=== PATIENT | male | born 1955 | race Caucasian/White ===

== ENCOUNTER → 2019-03-11 | Outpatient (CLI) | payer OTHER, SELFPAY ==
--- NOTE | 2019-03-11 16:35 | RAD_ITS ---
STUDY: X-RAY - PELVIS AND LEFT HIP REASON FOR EXAM: Male, 64 years old. Iliopsoas strain TECHNIQUE: 3 views of the pelvis and hip. COMPARISON: None. FINDINGS: There is a non-specific bowel gas pattern. Normal visualized soft tissue structures. Degenerative lower lumbar changes. Normal bilateral iliac wings, sacroiliac joints and visualized sacrum. Normal bilateral superior and inferior pubic rami. Normal pubic symphysis. Normal bilateral ischial tuberosities. Normal visualized femoral head. Normal acetabulum. Normal hip joint. RAD/HIP, UNI W/ Pelvis 2-3 Views IMPRESSION: Normal x-ray examination of the pelvis and hip. Electronically Signed: Yang Campbell DO at 21:48 EDT Tel [phone], Service support ,
== END | disposition home or self-care (01) ==
LOC: MTRAD 16:33
PROVIDERS: Family Provider Family Medicine; PCP Family Medicine; Referring Provider Family Medicine; Visit Provider Family Medicine
DX: S76 Injury of muscle, fascia and tendon at hip and thigh level (principal)
CPT/HCPCS: 73502

== ENCOUNTER → 2020-03-27 15:28 | Outpatient (CLI) | payer MEDICARE, SELFPAY ==
[2020-03-27 18:02] LABS: Anion Gap 5 (5-15); BUN 20 mg/dL (7-18); BUN/Creat Ratio 23.4 RATIO (10-20); Calcium,Total 9.1 mg/dL (8.5-10.1); Chloride 101 mmol/L (98-107); Cholesterol 203 mg/dL (200); Creatinine, Serum 0.86 mg/dL (0.70-1.30); EST Glomerular Filtration Rate 96 mL/min (>60); Est Glom Filt Rate - Afr Amer 116 mL/min (>60); Glucose 115 mg/dL (74-106); High Density Lipoprotein 71 mg/dL; PSA,Total - Annual Screen 4.21 ng/mL (0.00-4.00); Potassium 3.8 mmol/L (3.5-5.1); Sodium Level 137 mmol/L (136-145); Triglycerides 34 mg/dL; Very Low Density Lipoprotein 7 mg/dL (5-40)
== END ==
PROVIDERS: PCP Family Medicine; Referring Provider Family Medicine; Visit Provider Family Medicine
DX: Z00.00 Encounter for general adult medical examination without abnormal findings (principal)
CPT/HCPCS: 36415; 80048; 80061; 84153; G0103

== ENCOUNTER → 2020-04-14 12:10 | Outpatient (CLI) | payer MEDICARE, SELFPAY ==
[2020-04-14 12:38] LABS: Bacteria 0 SEEN /hpf (None Seen); Mucous, Urine 0 SEEN /hpf (<or=2+); White Blood Cells 0 SEEN /hpf (0-5)
[2020-04-14 12:57] LABS: Color, Urine Yellow (Yellow); Glucose, Dipstick Normal (Normal); Ketone-Dipstick Negative (Negative); Leukocyte Esterase-Dipstick Negative /ul (Negative); Nitrite-Dipstick Negative (Negative); Occult Blood-Urine Negative /ul (Negative); Protein-Dipstick 15 mg/dl (Negative); Urine Bilirubin Dipstick Negative (Negative); Urine Clarity Sl. Cloudy (Clear); Urine Urobilinogen Normal (Normal)
[2020-04-14 13:21] LABS: Red Blood Cells-Urine 0-5 SEEN /hpf (0-5); Squamous Epithelial Cells - UA 0-5 SEEN /hpf (0-5)
== END ==
PROVIDERS: PCP Family Medicine; Visit Provider Nurse Practitioner Adult Health
DX: R31.9 Hematuria, unspecified (principal)
CPT/HCPCS: 81001

== ENCOUNTER → 2020-05-26 10:45 | Outpatient (CLI) | payer MEDICARE, SELFPAY ==
--- NOTE | 2020-05-26 | IMM_PTH ---
PATIENT: GALLO OG LOC: [facility] U#:[id number] AGE/SX: 70/M ROOM: RE05/26/[address]: Dr. Tong Velázquez MD : 1955 BED: DIS: SPEC #: [id number] RECD: 05/28/20 10:26 STATUS: ZULMA REQ #: [id number] WOODY: 05/26/20 00:[address]: Tong Velázquez DEPT: IMMUNOHISTOCHEMISTRY RECD BY: Jessica Segundo ENTERED: 05/28/20 10:28 SP TYPE: IMMUNO OTHR DR: Dr. Janay Roche MD Tissues: B - PROSTATE RIGHT Procedures: P40 (add) 34BE12 (initial) PHYSICIAN & INSTITUTION [place] [address] SPECIMEN INFORMATION: Tissue Source: B - Right prostate, mid, core biopsy Clinical Info: Elevated PSA Specimen Number: [id number] CPT code: 25179, 15120 METHODOLOGY: Deparaffinized sections of prefer/formalin-fixed tissue or PAP/DQ stained slides are incubated with monoclonal/polyclonal antibodies/oligonucleotide probes. Localization is made via biotin free immunoperoxidase method. Appropriate controls are performed and reacted as expected. Results on target cell population are indicated in the following table: RESULTS: ANTIBODY / CLONE RESULT Block B 34BE12 (34BE12) negative P40 (BC28) negative These tests were developed and their performance characteristics determined by [facility]. They may not have been cleared or approved by the [place]. Food and Drug Administration. The FDA has determined that such clearance or approval is not necessary. The above immunohistochemical/dualISH markers are ordered and reviewed by the Pathologist. INTERPRETATION: B. Right prostate, mid, core biopsy: Focal atypical small acinar proliferation. SJ:james 05/29/2020 Case has been reviewed in consultation with Dr. Marshall who concurs with the above diagnosis. IDC:AM
--- NOTE | 2020-05-26 | PROSBIL_PTH ---
PATIENT: GALLO OG LOC: [facility] U#:[id number] AGE/SX: 70/M ROOM: RE05/26/[address]: Dr. Tong Velázquez MD : 1955 BED: DIS: SPEC #: [id number] RECD: 05/26/20 11:23 STATUS: ZULMA RACHEL #: [id number] WOODY: 05/26/20 00:[address]: Tong Velázquez DEPT: SURGICAL PATHOLOGY RECD BY: Omari Abad ENTERED: 05/26/20 11:23 SP TYPE: PROST BX JOSE CARLOS DR: Dr. Janay Roche MD Tissues: A - PROSTATE RIGHT B - PROSTATE RIGHT C - PROSTATE RIGHT D - PROSTATE LEFT E - PROSTATE LEFT F - PROSTATE LEFT Procedures: PROSTATE BX HEADER OPERATION: TRUS/biopsy PRE-OP DIAGNOSIS: Elevated PSA TISSUE SUBMITTED: A - Right apex, B - Right mid, C - Right base, D - Left apex, E - Left mid, F - Left base MICROSCOPIC DIAGNOSIS A. Right prostate, apex, core biopsy: Prostatic tissue, negative for malignancy. B. Right prostate, mid, core biopsy: Focal atypical small acinar proliferation (ANIBAL). Focal chronic inflammation. See comment. C. Right prostate, base, core biopsy: Prostatic tissue, negative for malignancy. D. Left prostate, apex, core biopsy: Prostatic tissue, negative for malignancy. E. Left prostate, mid, core biopsy: Prostatic tissue, negative for malignancy. Focal chronic inflammation. F. Left prostate, base, core biopsy: Prostatic tissue, negative for malignancy. SJ:james 05/27/2020 COMMENT B. Immunohistochemistry ([id number]) supports the above diagnosis. Case has been reviewed in consultation with Dr. Marshall who concurs with the above diagnosis. IDC:AM MICROSCOPIC DESCRIPTION Slides are reviewed. GROSS DESCRIPTION A - Received is one container designated prostate, right apex. The specimen consists of one elongated fragment of light stover-white soft tissue measuring 1 cm in length and 0.1 cm in diameter. The specimen is totally submitted in one cassette. B - Received is one container designated prostate, right mid. The specimen consists of two elongated fragments of light stover-white soft tissue measuring 1 and 1.5 cm in length and 0.1 cm in diameter. The specimen is totally submitted in one cassette. C - Received is one container designated prostate, right base. The specimen consists of two elongated fragments of light stover-white soft tissue measuring 1 and 1.2 cm in length and 0.1 cm in diameter. The specimen is totally submitted in one cassette. D - Received is one container designated prostate, left apex. The specimen consists of one elongated fragment of light stover-white soft tissue measuring 1.2. cm in length and 0.1 cm in diameter. The specimen is totally submitted in one cassette. E - Received is one container designated prostate, left mid. The specimen consists of two elongated fragments of light stover-white soft tissue measuring 1 and 1.5 cm in length and 0.1 cm in diameter. The specimen is totally submitted in one cassette. F - Received is one container designated prostate, left base. The specimen consists of two elongated fragments of light stover-white soft tissue measuring 1 and 1.3 cm in length and 0.1 cm in diameter. The specimen is totally submitted in one cassette. / SJ:rg 05/26/20 TC:5 CPT: G0146
== END ==
PROVIDERS: PCP Family Medicine; Referring Provider Urology; Visit Provider Urology
DX: R97.20 Elevated prostate specific antigen [PSA] (principal)
CPT/HCPCS: 88305; 88341; 88342; G0416

== ENCOUNTER → 2020-12-08 09:31 | Outpatient (CLI) | payer MEDICARE, SELFPAY ==
[2020-12-08 12:12] LABS: PSA,Total- Diagnostic 4.04 ng/mL (0.0-4.0)
== END ==
PROVIDERS: PCP Family Medicine; Referring Provider Urology; Visit Provider Urology
DX: R97.20 Elevated prostate specific antigen [PSA] (principal)
CPT/HCPCS: 36415; 84153

== ENCOUNTER → 2022-01-31 | Outpatient (CLI) | payer MEDICARE, SELFPAY ==
[2022-01-31 10:37] LABS: PSA,Total- Diagnostic 3.54 ng/mL (0.0-4.0)
== END | disposition home or self-care (01) ==
LOC: LAB 09:34
PROVIDERS: PCP Family Medicine; Referring Provider Registered Nurse; Visit Provider Registered Nurse
DX: R97.20 Elevated prostate specific antigen [PSA] (principal)
CPT/HCPCS: 36415; 84153

== ENCOUNTER → 2022-04-29 | Outpatient (CLI) | payer MEDICARE, SELFPAY ==
--- NOTE | 2022-04-29 17:14 | CT_ITS ---
HISTORY: screening for lung cancer. TECHNIQUE: Helically acquired images were obtained of the chest without contrast. A radiation dose optimization technique was used for this scan. 878 images. COMPARISON: 09/25/2014. FINDINGS: LARGE AIRWAYS: Minimal dependent material in the central airways. LUNGS: Mild paraseptal emphysema and bronchiectasis. 3 mm right upper lobe groundglass nodule. PLEURA: No pneumothorax or significant pleural effusion. HEART/PERICARDIUM: Heart within normal limits in size. Coronary artery calcification present. No pericardial effusion. VESSELS: Thoracic aorta nondilated. Mild atherosclerosis. MEDIASTINUM/RADHA: No pathologically enlarged adenopathy. BONES: Degenerative change. CT/Low Dose CT Lung Screening IMPRESSION: Mild pulmonary emphysema with a 3 mm groundglass right upper lobe pulmonary nodule. Lungs-RADS category 2: Continue annual screening with low dose CT. Electronically Signed: Alejandra Lujan MD at 14:33 EST ,
== END | disposition home or self-care (01) ==
LOC: CT 17:10
PROVIDERS: PCP Family Medicine; Referring Provider Family Medicine; Visit Provider Family Medicine
DX: Z87.891 Personal history of nicotine dependence (principal)
CPT/HCPCS: 71271

== ENCOUNTER → 2022-11-21 | Outpatient (CLI) | payer MEDICARE, SELFPAY ==
[2022-11-21 08:01] LABS: Anion Gap 3 (5-15); BUN 21 mg/dL (7-18); BUN/Creat Ratio 24.4 RATIO (10-20); Calcium,Total 8.9 mg/dL (8.5-10.1); Chloride 106 mmol/L (98-107); Creatinine, Serum 0.86 mg/dL (0.70-1.30); EST Glomerular Filtration Rate 94 mL/min (>60); Est Glom Filt Rate - Afr Amer 114 mL/min (>60); Glucose 105 mg/dL (74-106); Potassium 4.4 mmol/L (3.5-5.1); Sodium Level 140 mmol/L (136-145)
== END | disposition home or self-care (01) ==
LOC: LAB 06:22
PROVIDERS: PCP Family Medicine
DX: I48.19 Other persistent atrial fibrillation (principal); I10 Essential (primary) hypertension
CPT/HCPCS: 36415; 80048

== ENCOUNTER → 2023-02-21 | Outpatient (CLI) | payer MEDICARE, SELFPAY ==
[2023-02-21 10:21] LABS: PSA,Total- Diagnostic 3.03 ng/mL (0.0-4.0)
== END | disposition home or self-care (01) ==
LOC: LAB 08:53
PROVIDERS: PCP Family Medicine; Referring Provider Urology; Visit Provider Urology
DX: R97.20 Elevated prostate specific antigen [PSA] (principal)
CPT/HCPCS: 36415; 84153

== ENCOUNTER → 2024-02-26 | Outpatient (CLI) | payer MEDICARE, SELFPAY ==
[2024-02-26 10:19] LABS: PSA,Total - Annual Screen 2.62 ng/mL (0.00-4.00)
== END | disposition home or self-care (01) ==
LOC: LAB 08:40
PROVIDERS: PCP Family Medicine; Referring Provider Nurse Practitioner; Visit Provider Nurse Practitioner
DX: Z12.5 Encounter for screening for malignant neoplasm of prostate (principal)
CPT/HCPCS: 36415; 84153; G0103

== ENCOUNTER → 2024-04-15 | Outpatient (CLI) | payer MEDICARE, SELFPAY ==
[2024-04-15 19:03] LABS: Anion Gap 4 (5-15); BUN 20 mg/dL (7-18); BUN/Creat Ratio 24.7 RATIO (10-20); Calcium,Total 9.6 mg/dL (8.5-10.1); Chloride 104 mmol/L (98-107); Cholesterol 139 mg/dL (200); Creatinine, Serum 0.81 mg/dL (0.70-1.30); EST Glomerular Filtration Rate 100 mL/min (>60); Est Glom Filt Rate - Afr Amer 122 mL/min (>60); Glucose 124 mg/dL (74-106); High Density Lipoprotein 80 mg/dL; Sodium Level 138 mmol/L (136-145); Triglycerides 86 mg/dL; Very Low Density Lipoprotein 17 mg/dL (5-40)
== END | disposition home or self-care (01) ==
LOC: MFPLAB 15:36
PROVIDERS: PCP Family Medicine; Referring Provider Family Medicine; Visit Provider Family Medicine
DX: I10 Essential (primary) hypertension (principal)
CPT/HCPCS: 36415; 80048; 80061

== ENCOUNTER → 2024-05-04 | Outpatient (CLI) | payer MEDICARE, SELFPAY ==
--- NOTE | 2024-05-04 07:43 | CT_ITS ---
EXAM: CT CHEST WITHOUT INTRAVENOUS CONTRAST CLINICAL INDICATION: screening for lung cancer TECHNIQUE: Helically acquired images were obtained of the chest without intravenous contrast. This CT exam was performed using one or more of the following dose reduction techniques: automated exposure control, adjustment of the mA and/or kV according to patient size, and/or use of iterative reconstruction technique. RADIATION DOSE: CTDIvol = 3.02 mGy, DLP = 112.12 mGy-cm COMPARISON: CT chest 04/29/2022 FINDINGS: LUNGS AND PLEURAL SPACES: There is a stable, benign-appearing 3 mm groundglass nodule in the right upper lobe, series 2 image 57. No pleural effusion or thickening. No pneumothorax. HEART: Coronary artery calcifications. Heart size is normal. No pericardial effusion. MEDIASTINUM: Unremarkable. No mediastinal or hilar adenopathy. Esophagus is unremarkable. No hiatal hernia. THYROID: Unremarkable. No thyroid lesions. BONES/JOINTS: Degenerative changes of the spine. No suspicious lytic or blastic abnormality. VASCULATURE: See above. CT/Low Dose CT Lung Screening IMPRESSION: 1. There is a stable, benign-appearing 3 mm groundglass nodule in the right upper lobe, series 2 image 57. No new pulmonary nodules. ACR Lung CT Screening Reporting And Data System (Lung-RADS) score: 2 - Benign Appearance or Behavior. Recommend continued annual screening with a low-dose CT (LDCT) in 12 months. 2. Coronary artery calcifications. Electronically Signed: Herb Romo MD at 6:31 EST ,
== END | disposition home or self-care (01) ==
PROVIDERS: PCP Family Medicine; Referring Provider Family Medicine; Visit Provider Family Medicine
DX: Z12.2 Encounter for screening for malignant neoplasm of respiratory organs (principal); F17.210 Nicotine dependence, cigarettes, uncomplicated
CPT/HCPCS: 71271

== ENCOUNTER → 2024-08-09 | Outpatient (CLI) | payer MEDICARE, SELFPAY ==
[2024-08-09 11:10] LABS: Cholesterol 147 mg/dL (<=200); High Density Lipoprotein 73 mg/dL; Low Density Lipoprotein Calc. 64 mg/dL; Triglycerides 53 mg/dL; Very Low Density Lipoprotein 11 mg/dL (5-40); cholesterol:hdl ratio screen 2.02
== END | disposition home or self-care (01) ==
LOC: LAB 08:52
PROVIDERS: PCP Family Medicine; Referring Provider Nurse Practitioner Adult Health; Visit Provider Nurse Practitioner Adult Health
DX: E78.2 Mixed hyperlipidemia (principal)
CPT/HCPCS: 36415; 80061

== ENCOUNTER → 2024-12-09 | Outpatient (CLI) | payer MEDICARE, SELFPAY ==
--- NOTE | 2024-12-09 16:16 | RAD_ITS ---
PROCEDURE: HAND MIN 3 VIEWS 12/09/2024 REASON FOR EXAM: FALL IN AUGUST TECHNIQUE: HAND MIN 3 VIEWS COMPARISON: No FINDINGS: Lateral wrist osteoarthritis. Scattered hand osteoarthritis. No fracture or dislocation. RAD/Hand Min 3 Views IMPRESSION: No acute findings. Reading Location: [place] [address]
--- NOTE | 2024-12-09 16:16 | RAD_ITS ---
PROCEDURE: FOREARM 2 VIEWS 12/09/2024 REASON FOR EXAM: FALL IN AUGUST TECHNIQUE: FOREARM 2 VIEWS COMPARISON: None FINDINGS: Bones: No demonstrated fracture or suspicious osseous lesion, there is a triceps insertion spur on the posterior proximal ulna Joints: Elbow and wrist joints well-preserved Soft tissues: No suspicious soft tissue swelling or foreign body Other: RAD/Forearm 2 Views IMPRESSION: No acute fracture or suspicious osseous lesion Triceps insertion spur Joint spaces well-preserved Reading Location: [id number]
== END | disposition home or self-care (01) ==
LOC: MTRAD 16:13
DX: M79.641 Pain in right hand (principal); M79.632 Pain in left forearm
CPT/HCPCS: 73090; 73130

== ENCOUNTER → 2025-03-10 | Outpatient (CLI) | payer MEDICARE, SELFPAY ==
[2025-03-10 11:32] LABS: PSA,Total - Annual Screen 3.07 ng/mL (0.02-4.00)
== END | disposition home or self-care (01) ==
LOC: LAB 10:20
PROVIDERS: Referring Provider Urology; Visit Provider Urology
DX: Z12.5 Encounter for screening for malignant neoplasm of prostate (principal)
CPT/HCPCS: 36415; 84153; G0103